=== PATIENT | female | born 1985 | race Caucasian/White ===

== ENCOUNTER → 2018-03-09 | Outpatient (CLI) | payer MEDICAID ==
--- NOTE | 2018-03-09 14:15 | RADIOLOGY REPORT (SQ) ---
EXAM DESCRIPTION: U/S NON-OB PELVIS LTD W/O DOP COMPLETED DATE/TIME: 03/09/2018 2:05 pm REASON FOR STUDY: ABD WALL BULGE (R19.00) R19.00 INTRA-ABD AND PELVIC SWELLING, MASS AND LUMP, UNSP SI COMPARISON: None. TECHNIQUE: Dynamic and static grayscale images acquired of the pelvis via transabdominal approach an d recorded on PACS. Additional selected color Doppler and spectral images recorded. LIMITATIONS: None. FINDINGS: Imaging in the area of the scar demonstrates a 2.4 x 1.9 x 1.3 cm somewhat heter ogeneous isoechoic nodule. There is no fluid collection. IMPRESSION: Likely granuloma. There is no evidence of an abscess. TECHNICAL DOCUMENTATION: JOB ID: [id number] [employer]- All Rights Reserved Rev-07/09 Reading location - IP/workstation name: [email or web address]
== END ==
LOC: RAD 12:39
PROVIDERS: ATTEND Family Medicine
DX: R19.00 Intra-abdominal and pelvic swelling, mass and lump, unspecified site (principal)
CPT/HCPCS: 76857

== ENCOUNTER → 2018-03-10 | Outpatient (CLI) | payer MEDICAID ==
--- NOTE | 2018-03-10 15:42 | WOMENS IMAGING REPORT ---
EXAM DESCRIPTION: U/S BREAST UNILATERAL, COMPL COMPLETED DATE/TIME: 03/10/2018 2:35 pm REASON FOR STUDY: N60.09 RIGHT N60.09 SOLITARY CYST OF UNSPECIFIED BREAST COMPARISON: None TECHNIQUE: Static and Realtime grayscale interrogation of the entire right breast(s) acquired. Selec darnell color doppler/spectral images saved to PACS. LIMITATIONS: None. FINDINGS: Masses:5 mm oval circumscribed cyst in the 9 o'clock location. Also in the 9 o'clock loca tion a 5 x 7 mm circumscribed septated cyst. No distal shadowing. No solid masses. Architecture:No alteration of normal morphology. No skin thickening. No edema. Other: None. IMPRESSION: Small cysts in the lateral right breast. No solid masses or worrisome findings. BIRAD: 2 Benign findings. RECOMMENDATION: RECOMMENDED FOLLOW-UP: Follow-up as clinically indicated. COMMENT: The [employer] (ACR) has developed recommendations for screening MRI of the breasts in certain patient populations, to be used in conjunction with mammography. Breast MRI s urveillance may be appropriate for women with more than 20% lifetime risk of developing breast cancer as determined by genetic testing, significant family history of the disease, or history of mantle r adiation for Hodgkins Disease. ACR Practice Guidelines 2008. TECHNICAL DOCUMENTATION: FINDING NUMBER: (1) ASSESSMENT: (1) JOB ID: [id number] [employer]- All Rights Reserved Reading location - IP/workstation name: [email or web address]
--- NOTE | 2018-03-10 15:44 | WOMENS IMAGING REPORT ---
EXAM DESCRIPTION: U/S BREAST UNILATERAL, COMPL COMPLETED DATE/TIME: 03/10/2018 2:35 pm REASON FOR STUDY: N60.09 LEFT N60.09 SOLITARY CYST OF UNSPECIFIED BREAST COMPARISON: None. TECHNIQUE: Real-time and static grayscale imaging performed of the left breast targeted to the area of clinical/mammographic concern. Selected color Doppler images recorded. LIMITATIONS: None. FINDINGS: MASS: Circumscribed hypoechoic masses, in 3 o'clock location measuring 5 x 7 mm and in the 9 o'clock location measuring 5 x 9 mm. Well-circumscribed with homogeneous echogenicity. No distal shadowing. Oriented relatively parallel to the skin. OTHER: No other significant finding. IMPRESSION: Small subcentimeter circumscribed solid masses as described. The patient reports a know n history of fibroadenoma. 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 If prior studies are available, comparison with prior studies would be helpful to determine if there is any change. If n o prior studies are available, then would recommend short-term interval followup with repeat ultrasou nd in 6 months. BIRAD: 3 Probably benign finding. Initial short-interval follow-up suggested. RECOMMENDATION: RECOMMENDED FOLLOW-UP: Short-term interval followup with repeat ultrasound of the le ft breast in 6 months. COMMENT: The [employer] (ACR) has developed recommendations for screening MRI of the breasts in certain patient populations, to be used in conjunction with mammography. Breast MRI s urveillance may be appropriate for women with more than 20% lifetime risk of developing breast cancer as determined by genetic testing, significant family history of the disease, or history of mantle r adiation for Hodgkins Disease. ACR Practice Guidelines 2008. TECHNICAL DOCUMENTATION: JOB ID: [id number] [employer]- All Rights Reserved Reading location - IP/workstation name: [email or web address]
== END ==
LOC: WI 12:45
PROVIDERS: ATTEND Family Medicine
DX: N60.09 Solitary cyst of unspecified breast (principal)
CPT/HCPCS: 76641

== ENCOUNTER 2018-06-06 05:34 | Inpatient (IN) | payer MEDICAID ==
[2018-05-30 11:33] LABS: APPEARANCE,URINE SLIGHTLY-CLOUDY; BILIRUBIN,URINE NEGATIVE (NEGATIVE); GLUCOSE, URINE NEGATIVE (NEGATIVE); KETONES,URINE TRACE mg/dL (NEGATIVE); LEUKOCYTE ESTERASE,URINE NEGATIVE (NEGATIVE); NITRITE,URINE NEGATIVE (NEGATIVE); PROTEIN,URINE NEGATIVE (NEGATIVE); URINE SPECIFIC GRAVITY 1.024
[2018-05-30 11:34] LABS: COLOR,URINE YELLOW
[2018-05-30 11:53] LABS: HEMOGLOBIN 9.8 g/dL (12.0-15.5); MEAN CORPUSCULAR HGB CONC 32.6 g/dL (32.0-36.0); MEAN CORPUSCULAR VOLUME 74 fl (80-97); PLATELET COUNT 215 10^3/uL (150-450); RED BLOOD COUNT 4.07 10^6/uL (3.72-5.28); RED CELL DISTRIBUTION WIDTH 18.3 % (11.5-14.0); WHITE BLOOD COUNT 5.8 10^3/uL (4.0-10.5)
[2018-05-30 12:11] LABS: ALANINE AMINOTRANSFERASE 17 U/L (9-52); ALBUMIN 4.1 g/dL (3.5-5.0); ALKALINE PHOSPHATASE 39 U/L (38-126); ANION GAP 6 (5-19); ASPARTATE AMINO TRANSFERASE 22 U/L (14-36); BILIRUBIN,DIRECT 0.2 mg/dL (0.0-0.4); BILIRUBIN,TOTAL 0.4 mg/dL (0.2-1.3); BLOOD UREA NITROGEN 11 mg/dL (7-20); CALCIUM 9.8 mg/dL (8.4-10.2); CARBON DIOXIDE 29 mmol/L (22-30); CHLORIDE 106 mmol/L (98-107); GLUCOSE 91 mg/dL (75-110); POTASSIUM 4.2 mmol/L (3.6-5.0); SODIUM 141.2 mmol/L (137-145); TOTAL PROTEIN 7.1 g/dL (6.3-8.2)
[~2018-06-06 05:34] MED LIST: CEFAZOLIN 2 GM/D5W RTU 2 GM/50 ML RTUPB IV ONE; CEFAZOLIN 2 GM/D5W RTU 2 GM/50 ML RTUPB IV PRN; LACTATED RINGERS 1000 ML IV PRN; LIDOCAINE 0.5% INJ-PF (5 MG/ML) 50 ML SDV SUBCUT PRN
[2018-06-06] MEDS ORDERED: MIDAZOLAM 2 MG/2 ML INJ ONE (06:37)
[2018-06-06] MEDS ORDERED: HYDROMORPHONE HCL INJ/PF 2 MG/ML AMPULE ONE (06:37)
[2018-06-06] MEDS ORDERED: FENTANYL CITRATE INJ/PF 100 MCG/2 ML AMPUL ONE (06:37)
[2018-06-06] MEDS ORDERED: PROPOFOL INJ 200 MG/20 ML VIAL IV ONE (06:38)
[2018-06-06] MEDS ORDERED: EPHEDRINE SULFATE INJ 50 MG/1 ML AMPULE ONE (06:38)
[2018-06-06] MEDS ORDERED: ACETAMINOPHEN 1,000 MG/100 ML RTUPB IV ONE (06:38)
[2018-06-06] MEDS ORDERED: SUGAMMADEX SODIUM 200 MG/2 ML SDV IV ONE (07:02)
[2018-06-06] MEDS ORDERED: SIMETHICONE 80 MG TAB.CHEW PO PRN (07:32)
[2018-06-06] MEDS ORDERED: OXYCODONE-ACETAMINOPHEN 5-325 MG TABLET PO PRN (07:32)
[2018-06-06] MEDS ORDERED: ACETAMINOPHEN 325 MG TABLET PO PRN (07:32)
[2018-06-06] MEDS ORDERED: ACETAMINOPHEN 1,000 MG/100 ML RTUPB IV PRN (07:32)
[2018-06-06] MEDS ORDERED: PROMETHAZINE HCL INJ 25 MG/1 ML VIAL IV PRN ×2 (07:32→08:23)
[2018-06-06] MEDS ORDERED: RINGERS SOLUTION,LACTATED 1,000 ML IV PRN (07:32)
[2018-06-06] MEDS ORDERED: MEPERIDINE HCL/PF INJ 25 MG/1 ML DISP.SYRIN IV PRN (08:23)
[2018-06-06] MEDS ORDERED: DIPHENHYDRAMINE HCL 50 MG/ML VIAL IV PRN (08:23)
[2018-06-06] MEDS ORDERED: MORPHINE SULFATE 10 MG/ML INJ IV PRN (08:23)
[2018-06-06] MEDS ORDERED: FENTANYL CITRATE INJ/PF 100 MCG/2 ML AMPUL IV PRN ×3 (08:23)
[2018-06-06] MEDS: FENTANYL CITRATE INJ/PF 100 MCG/2 ML AMPUL ONE ×2 (09:25→09:30)
[2018-06-06] MEDS ORDERED: ONDANSETRON HCL INJ/PF 4 MG/2 ML SDV ONE (09:26)
[2018-06-06] MEDS ORDERED: PROMETHAZINE HCL INJ 25 MG/1 ML VIAL ONE (09:26)
--- NOTE | 2018-06-06 09:26 | Operative Report ---
Operative Report DATE OF SURGERY: 06/06/18 PREOPERATIVE DIAGNOSIS: Patient has large fibroid uterus menorrhagia and anemia POSTOPERATIVE DIAGNOSIS: Same OPERATION: Total abdominal hysterectomy bilateral salpingectomy SURGEON: FLACO PINTO PRIMER CHARGER: KADEN ELLINGTON ANESTHESIA: GA TISSUE REMOVED OR ALTERED: Uterus and fallopian tubes COMPLICATIONS: None ESTIMATED BLOOD LOSS: 150 cc INTRAOPERATIVE FINDINGS: Large fibroid uterus normal ovaries, adhesions surrounding the left fallopian tube PROCEDURE: Patient was taken the OR and placed in supine position. General anesthesia was induced. Her abdomen perineum and vagina were prepared and draped in sterile fashion. A Pope catheter was placed. A low transverse incision was made excising her old scar. This was carried down to the level of the fascia which was nicked in the midline. The fascial incision was extended bilaterally using curved Duenas scissors. The fascia was off the rectus muscles using sharp and blunt dissection. The midline peritoneum was elevated and incised with Metzenbaum scissors safely entering the abdominal cavity. This incision was extended superiorly and inferiorly taking care not to injure bladder. A Mobius retractor was placed. 3 moist lap sponges were used to pack off bowel contents. The uterus was grasped with Tania thyroid clamp and elevated out of the pelvis. First the fallopian tubes were excised using the LigaSure device. There were adhesions at the left fallopian tube which had to be taken down. The round ligament was divided bilaterally. The anterior leaf of the broad ligament was incised creating a bladder flap and the posterior leaf the broad ligament was incised isolating the uterine arteries. The utero-ovarian pedicles were divided bilaterally using LigaSure device to clamp ligate and cut the pedicles. Next the and he adhesions overlying the bladder were taken down sharply without evidence of injury to the bladder. This was somewhat scarred up from her previous C-sections. Next the uterine arteries were clamped cauterized and divided using LigaSure device. The cardinal ligaments were then clamped cut and ligated using a straight Loly clamp and transfixation suture of 0 Vicryl. The cardinal ligaments were quite long as the cervix was long. Upon reaching the vaginal angle curved Loly clamps were used to come across the vaginal angles. The cervix was excised free from the vaginal cuff. Angle sutures were placed bilaterally incorporating anterior vaginal mucosa lateral vaginal sidewall and posterior vaginal mucosa. The vaginal cuff was closed with a running locking suture of 0 Vicryl. The pelvis was irrigated and suctioned free of fluid. The ureters were identified peristalsing and not dilated bilaterally. The uterine pedicles and the ovarian pedicles were inspected and there was no bleeding. The 3 lap sponges were removed as well as the Mobius retractor. The bowel was allowed to settle in its natural configuration. The anterior abdominal wall peritoneum was closed with a running 2-0 chromic stitch. The subfascial tissues were inspected for bleeding and the fascia was closed with a running 0 Vicryl in 2 segments. The wound was irrigated and suctioned free of fluid the subcu layer was closed with a 2 oh plain gut stitch and skin closed with a 4-0 undyed Vicryl stitch. The wound was dressed. Patient was brought out of anesthesia and taken recovery room in stable condition.
[2018-06-06] MEDS: MORPHINE SULFATE 10 MG/ML INJ ONE ×2 (09:40→09:45)
[2018-06-06] MEDS ORDERED: KETOROLAC TROMETHAMINE 60 MG/2 ML SDV ONE (10:25)
[2018-06-06] MEDS ORDERED: DEXAMETHASONE SOD PHOSPHATE INJ 4 MG/1 ML VIAL ONE (10:25)
[2018-06-06] MEDS ORDERED: ROCURONIUM BROMIDE INJ 50 MG/5 ML VIAL IV ONE (10:25)
[2018-06-06] MEDS ORDERED: LIDOCAINE 2% INJ-PF (20 MG/ML) 2 ML AMPUL ONE (10:25)
[2018-06-06] MEDS ORDERED: SUCCINYLCHOLINE CHLORIDE INJ 200 MG/10 ML VIAL ONE (10:25)
[2018-06-06] MEDS: HYDROMORPHONE HCL INJ/PF 2 MG/ML AMPULE IV PRN ×2 (11:23→14:24)
[2018-06-06] MEDS: PRENATAL VITAMIN W DHA CAPSULE PO SCH (11:36)
[2018-06-06] MEDS: OXYCODONE-ACETAMINOPHEN 5-325 MG TABLET PO PRN ×2 (12:28→19:01)
[2018-06-06] MEDS: KETOROLAC TROMETHAMINE INJ/PF 30 MG/1 ML SDV IV SCH ×2 (13:10→21:00)
[2018-06-06 15:09] LABS: ABSOLUTE LYMPHOCYTES (AUTO) 0.6 10^3/uL (0.5-4.7); ABSOLUTE MONOCYTES (AUTO) 0.4 10^3/uL (0.1-1.4); BASOPHILS % (AUTO) 0.1 % (0-2); HEMATOCRIT 25.1 % (36.0-47.0); LYMPHOCYTES % (AUTO) 5.5 % (13-45); MEAN CORPUSCULAR HEMOGLOBIN 23.3 pg (27.0-33.4); MEAN CORPUSCULAR HGB CONC 31.9 g/dL (32.0-36.0); MEAN CORPUSCULAR VOLUME 73 fl (80-97); MONOCYTES % (AUTO) 3.5 % (3-13); PLATELET COUNT 197 10^3/uL (150-450); RED BLOOD COUNT 3.43 10^6/uL (3.72-5.28); RED CELL DISTRIBUTION WIDTH 17.7 % (11.5-14.0); SEGMENTED NEUTROPHILS % (AUTO) 90.9 % (42-78); TOTAL CELLS COUNTED % (AUTO) 100 %
[2018-06-06 15:26] LABS: ANION GAP 7 (5-19); BLOOD UREA NITROGEN 9 mg/dL (7-20); CALCIUM 8.7 mg/dL (8.4-10.2); CARBON DIOXIDE 25 mmol/L (22-30); CHLORIDE 107 mmol/L (98-107); GLUCOSE 113 mg/dL (75-110); SODIUM 139.1 mmol/L (137-145)
[2018-06-06] MEDS: DOCUSATE SODIUM 100 MG CAPSULE PO SCH (19:51)
[2018-06-07] MEDS: OXYCODONE-ACETAMINOPHEN 5-325 MG TABLET PO PRN ×4 (00:11→13:15)
[2018-06-07] MEDS ORDERED: RINGERS SOLUTION,LACTATED 1,000 ML IV ONE (01:00)
[2018-06-07] MEDS: KETOROLAC TROMETHAMINE INJ/PF 30 MG/1 ML SDV IV SCH (05:30)
[2018-06-07 06:17] LABS: MEAN CORPUSCULAR HEMOGLOBIN 23.7 pg (27.0-33.4); MEAN CORPUSCULAR HGB CONC 32.4 g/dL (32.0-36.0); MEAN CORPUSCULAR VOLUME 73 fl (80-97); PLATELET COUNT 148 10^3/uL (150-450); RED CELL DISTRIBUTION WIDTH 17.6 % (11.5-14.0); WHITE BLOOD COUNT 6.8 10^3/uL (4.0-10.5)
[2018-06-07 06:20] LABS: HEMOGLOBIN 7.1 g/dL (12.0-15.5)
--- NOTE | 2018-06-07 08:02 | PDOC PROGRESS REPORT ---
Subjective Progress Note for:: 06/07/18 Subjective:: She is up and doing well. Reason For Visit: N92.0 EXCESSIVE AND FREQUENT MENSTRUATION WITH REG Physical Exam - Physical Exam Vital Signs: Temp Pulse Resp BP Pulse Ox 98.2 F 55 L 16 93/52 L 100 06/07/18 05:06 06/07/18 05:06 06/07/18 05:06 06/07/18 05:06 06/07/18 05:06 Intake & Output 06/06/18 06/07/18 06/08/18 06:59 06:59 06:59 Intake Total 0 3150 Output Total 1850 Balance 0 1300 Weight 62.14 kg 62.8 kg General appearance: PRESENT: no acute distress - dressing is dry, well- developed, well-nourished Result Laboratory Results: 06/07/18 06:00 06/06/18 14:45 06/06/18 06/06/18 06/07/18 14:45 14:45 06:00 WBC 11.0 H 6.8 RBC 3.43 L 3.00 L Hgb 8.0 L 7.1 L Hct 25.1 L 22.0 L MCV 73 L 73 L MCH 23.3 L 23.7 L MCHC 31.9 L 32.4 RDW 17.7 H 17.6 H Plt Count 197 148 L Seg Neutrophils % 90.9 H Lymphocytes % 5.5 L Monocytes % 3.5 Eosinophils % 0.0 Basophils % 0.1 Absolute Neutrophils 10.0 H Absolute Lymphocytes 0.6 Absolute Monocytes 0.4 Absolute Eosinophils 0.0 Absolute Basophils 0.0 Sodium 139.1 Potassium 4.0 Chloride 107 Carbon Dioxide 25 Anion Gap 7 BUN 9 Creatinine 0.62 Est GFR ( Amer) > 60 Est GFR (Non-Af Amer) > 60 Glucose 113 H Calcium 8.7 Impressions: Post op day one. She is anemic but doing well. Assessment & Plan - Diagnosis (1) Uterine fibroid Is this a current diagnosis for this admission?: Yes (2) Anemia due to blood loss, acute Is this a current diagnosis for this admission?: Yes (3) Anemia due to blood loss, chronic Is this a current diagnosis for this admission?: Yes - Plan Summary Plan Summary: remove youssef and saline lock iv
[2018-06-07] MEDS: DOCUSATE SODIUM 100 MG CAPSULE PO SCH (10:13)
[2018-06-07] MEDS: PRENATAL VITAMIN W DHA CAPSULE PO SCH (10:13)
[2018-06-07 11:44] VITALS: BP 105/67
[2018-06-07] MEDS ORDERED: IBUPROFEN 800 MG TABLET PO SCH (12:00)
--- NOTE | 2018-06-07 12:21 | PDOC DISCHARGE SUMMARY ---
General - Admit/Disc Date/PCP Admission Date/Primary Care Provider: 06/06/18 05:34 Discharge Date: 06/07/18 - Discharge Diagnosis (1) Uterine fibroid Is this a current diagnosis for this admission?: Yes (2) Anemia due to blood loss, acute Is this a current diagnosis for this admission?: Yes (3) Anemia due to blood loss, chronic Is this a current diagnosis for this admission?: Yes - Additional Information Home Medications: Clonazepam [Klonopin 1 mg Tablet] 1 mg PO Q12HP PRN 05/30/18 History of Present Illness History of Present Illness: BELIA CRANE is a 33 year old female with a large fibroid with heavy menses and anemia. Hospital Course Hospital Course: She underwent a hysterectomy and is doing well post op. She has anemia of both chronic and acute blood loss but is tolerating well. Physical Exam - Physical Exam Vital Signs: Temp Pulse Resp BP Pulse Ox 98.6 F 70 16 105/67 93 06/07/18 11:36 06/07/18 11:36 06/07/18 11:36 06/07/18 11:36 06/07/18 11:36 Intake & Output 06/06/18 06/07/18 06/08/18 06:59 06:59 06:59 Intake Total 0 3150 Output Total 1850 725 Balance 0 1300 -725 Weight 62.14 kg 62.8 kg General appearance: PRESENT: no acute distress - incision clean dry intact., well-developed, well-nourished Result Laboratory Results: 06/07/18 06:00 06/06/18 14:45 06/06/18 06/06/18 06/07/18 14:45 14:45 06:00 WBC 11.0 H 6.8 RBC 3.43 L 3.00 L Hgb 8.0 L 7.1 L Hct 25.1 L 22.0 L MCV 73 L 73 L MCH 23.3 L 23.7 L MCHC 31.9 L 32.4 RDW 17.7 H 17.6 H Plt Count 197 148 L Seg Neutrophils % 90.9 H Lymphocytes % 5.5 L Monocytes % 3.5 Eosinophils % 0.0 Basophils % 0.1 Absolute Neutrophils 10.0 H Absolute Lymphocytes 0.6 Absolute Monocytes 0.4 Absolute Eosinophils 0.0 Absolute Basophils 0.0 Sodium 139.1 Potassium 4.0 Chloride 107 Carbon Dioxide 25 Anion Gap 7 BUN 9 Creatinine 0.62 Est GFR ( Amer) > 60 Est GFR (Non-Af Amer) > 60 Glucose 113 H Calcium 8.7 Impressions: Doing well post day one. Plan Discharge Plan: Home to rest with followup in a week. Time Spent: Less than 30 Minutes
== END 2018-06-07 13:23 | disposition home or self-care (01) | DRG 742 ==
LOC: INOR 05:34 → 2S 10:24
PROVIDERS: ADMIT Obstetrics & Gynecology; ATTEND Obstetrics & Gynecology
PROC: 0UT70ZZ Resection of Bilateral Fallopian Tubes, Open Approach (ICD-10-PCS; 2018-06-06)
PROC: 0UT90ZZ Resection of Uterus, Open Approach (ICD-10-PCS; principal; 2018-06-06 07:30)
DX: D25.1 Intramural leiomyoma of uterus (principal); D62 Acute posthemorrhagic anemia; N92.0 Excessive and frequent menstruation with regular cycle; D50.0 Iron deficiency anemia secondary to blood loss (chronic); G25.81 Restless legs syndrome; F32.9 Major depressive disorder, single episode, unspecified
CPT/HCPCS: 36415; 80048; 80053; 81001; 81025; 840; 85025; 85027; 86850; 86900; 86901; 88307; 94799; J0131; J0330; J0690; J1100; J1170; J1885; J2250; J2270; J2405; J2550; J2704; J3010; J3490; J7120

== ENCOUNTER 2018-06-10 08:21 | Emergency (ER) | payer MEDICAID ==
[2018-06-10 09:03] LABS: APPEARANCE,URINE CLEAR; BILIRUBIN,URINE NEGATIVE (NEGATIVE); COLOR,URINE STRAW; GLUCOSE, URINE NEGATIVE (NEGATIVE); KETONES,URINE NEGATIVE (NEGATIVE); LEUKOCYTE ESTERASE,URINE NEGATIVE (NEGATIVE); NITRITE,URINE NEGATIVE (NEGATIVE); PROTEIN,URINE NEGATIVE (NEGATIVE); URINE SPECIFIC GRAVITY 1.004; UROBILINOGEN,URINE NEGATIVE mg/dL (<2.0)
[2018-06-10 09:24] LABS: ABSOLUTE EOSINOPHILS # (AUTO) 0.3 10^3/uL (0.0-0.6); ABSOLUTE LYMPHOCYTES (AUTO) 1.2 10^3/uL (0.5-4.7); ABSOLUTE MONOCYTES (AUTO) 0.7 10^3/uL (0.1-1.4); ABSOLUTE NEUT (AUTO) 6.2 10^3/uL (1.7-8.2); BASOPHILS % (AUTO) 0.3 % (0-2); EOSINOPHILS % (AUTO) 3.7 % (0-6); HEMATOCRIT 23.4 % (36.0-47.0); LYMPHOCYTES % (AUTO) 14.3 % (13-45); MEAN CORPUSCULAR HEMOGLOBIN 23.6 pg (27.0-33.4); MEAN CORPUSCULAR HGB CONC 32.4 g/dL (32.0-36.0); MEAN CORPUSCULAR VOLUME 73 fl (80-97); MONOCYTES % (AUTO) 7.7 % (3-13); PLATELET COUNT 243 10^3/uL (150-450); RED BLOOD COUNT 3.22 10^6/uL (3.72-5.28); RED CELL DISTRIBUTION WIDTH 18.1 % (11.5-14.0); TOTAL CELLS COUNTED % (AUTO) 100 %; WHITE BLOOD COUNT 8.4 10^3/uL (4.0-10.5)
[2018-06-10 09:29] LABS: HEMOGLOBIN 7.6 g/dL (12.0-15.5)
[2018-06-10 09:35] LABS: INTERNATIONAL RATION (INR) 0.96; PROTHROMBIN TIME 13.3 SEC (11.4-15.4)
[2018-06-10 09:36] LABS: PARTIAL THROMBOPLASTIN TIME 45.3 SEC (23.5-35.8)
[2018-06-10 09:39] LABS: ALANINE AMINOTRANSFERASE 24 U/L (9-52); ALBUMIN 3.2 g/dL (3.5-5.0); ALKALINE PHOSPHATASE 40 U/L (38-126); ANION GAP 7 (5-19); ASPARTATE AMINO TRANSFERASE 19 U/L (14-36); BILIRUBIN,DIRECT 0.2 mg/dL (0.0-0.4); BILIRUBIN,TOTAL 0.3 mg/dL (0.2-1.3); BLOOD UREA NITROGEN 9 mg/dL (7-20); CALCIUM 8.8 mg/dL (8.4-10.2); CARBON DIOXIDE 25 mmol/L (22-30); CHLORIDE 108 mmol/L (98-107); CREATINE KINASE 98 U/L (30-135); GLUCOSE 87 mg/dL (75-110); POTASSIUM 3.9 mmol/L (3.6-5.0); SODIUM 140.3 mmol/L (137-145)
[2018-06-10] MEDS ORDERED: OXYCODONE-ACETAMINOPHEN 5-325 MG TABLET PO ONE (09:44)
[2018-06-10 10:03] LABS: NT PRO BNP 291 pg/mL (<125)
[2018-06-10 10:05] LABS: TROPONIN I < 0.012 ng/mL
--- NOTE | 2018-06-10 10:42 | ER Document Report ---
ED General - General Chief Complaint: Post Surgical Pain Stated Complaint: POST SURGICAL PAIN Time Seen by Provider: 06/10/18 08:47 Primary Care Provider: FLACO GARCIA MD [Primary Care Provider] - Follow up as needed TRAVEL OUTSIDE OF THE [place] IN LAST 30 DAYS: No - HPI Notes: Patient is a 33-year-old female presents to the emergency department for evaluation. She had hysterectomy performed on Wednesday. She was discharged on Wednesday. This is performed by Dr. Garcia. She states the procedure went without difficulty, she was sent home mildly anemic but no other acute complaints. She states she been taking the Percocet sparingly, it has been helping her with her pain. Yesterday she started having significant low back pain. She states she feels a pressure throughout her entire lower abdomen as well. This morning she noted that her legs were swollen. She denies any chest pain or difficulty breathing. She states her urine stream is also been intermittently hesitant. She denies any dysuria, urinary frequency, gross hematuria. She states that she has not had a bowel movement since before the surgery, but that is not highly abnormal for her. - Related Data Allergies/Adverse Reactions: No Known Allergies Allergy (Verified 06/10/18 08:22) Past Medical History - General Information source: Patient - Social History Smoking Status: Current Every Day Smoker Family History: Reviewed & Not Pertinent Patient has suicidal ideation: No Patient has homicidal ideation: No Pulmonary Medical History: Denies: Hx Asthma, Hx Bronchitis Endocrine Medical History: Denies: Hx Diabetes Mellitus Type 2 Renal/ Medical History: Reports: Hx Ovarian Cysts. Denies: Hx Ectopic , Hx Kidney Stones, Hx Peritoneal Dialysis, Hx Pelvic Inflammatory Disease Malignancy Medical History: Denies: Hx Breast Cancer, Hx Cervical Cancer, Hx Leukemia, Hx Ovarian Cancer GI Medical History: Reports: Hx Gastroesophageal Reflux Disease - HX OF GERD. Denies: Hx Crohn's Disease, Hx Hiatal Hernia, Hx Irritable Bowel, Hx Liver Fa ilure, Hx Pancreatitis, Hx Ulcer Skin Medical History: Denies Hx MRSA Psychiatric Medical History: Reports: Hx Depression - MILD Denies: Hx Bipolar Disorder, Hx Post Traumatic Stress Disorder, Hx Schizophrenia Infectious Medical History: Denies: Hx HIV Past Surgical History: Reports: Hx Section - X 2, Hx Tubal Ligation. Denies: Hx Appendectomy, Hx Bowel Surgery, Hx Cholecystectomy, Hx Colostomy, Hx Coronary Artery Bypass Graft, Hx Gastric Bypass Surgery, Hx Herniorrhaphy, Hx Hysterectomy, Hx Mastectomy, Hx Pacemaker, Hx Tonsillectomy - Immunizations Hx Diphtheria, Pertussis, Tetanus Vaccination: Yes Review of Systems - Review of Systems Constitutional: No symptoms reported EENT: No symptoms reported Cardiovascular: No symptoms reported Respiratory: No symptoms reported Gastrointestinal: No symptoms reported Genitourinary: No symptoms reported Musculoskeletal: See HPI Skin: No symptoms reported Neurological/Psychological: No symptoms reported Physical Exam - Vital signs Vitals: Temp Pulse Resp BP Pulse Ox 98.4 F 100 20 119/44 L 99 06/10/18 08:25 06/10/18 08:25 06/10/18 08:25 06/10/18 08:25 06/10/18 08:25 - Notes Notes: Vital signs reviewed, please refer to chart. Patient is normocephalic, atraumatic. Pupils equal round, reactive to light. Neck is supple without meningismus. Heart is regular rate and rhythm. Lungs are clear to auscultation bilaterally. Abdomen is soft, mild tenderness, normoactive bowel sounds throughout. She has bandages in place is normal lower abdomen. She does have a small, tender, palpable hematoma over the left side of the mons. Extremities without cyanosis, clubbing. 1+ pitting edema to bilateral ankles. No posterior calf tenderness. Peripheral pulses are equal. Skin is warm and dry. Patient is awake, alert, neurological exam is nonfocal. Examination of the spine yields no midline tenderness or step-off. There is paraspinal musculature tenderness noted at L3 bilaterally with mild associated spasm. Course - Re-evaluation Re-evalutation: 06/10/18 10:39 Patient presents to the emergency department for evaluation. She has multiple complaints, but is primarily concerned about her back pain, leg swelling, and an extra bruise that she noted on abdominal inspection today. Workup was ordered. Laboratory investigations revealed an anemia, but this is actually improved since her discharge from the hospital. Urinalysis was unremarkable. I suspect part of this may be secondary to constipation, and will encourage the patient to continue stool softeners and a good bowel regimen. Given the mild edema in her legs, to be thorough I did order Doppler of bilateral legs. Unfortunately, ultrasound was extremely busy, and the patient declined waiting any longer for her Dopplers. I explained to her that I was concerned about the possibility of DVT, especially since she is postop. We did discuss the possibility of this developing into a pulmonary embolus, and that this could be significantly damaging or fatal. She voiced understanding. I explained her that she should come in at any time if she changes her mind. Certainly if she develops chest pain or difficulty breathing, she needs to come in more urgently for evaluation. She voiced understanding to this. She states she has a special needs son which requires her presents. The importance of keeping her appointment with Dr. Garcia next week was stressed. She voiced understanding to this and was discharged. 06/10/18 11:40 - Vital Signs Vital signs: Temp Pulse Resp BP Pulse Ox 98.4 F 100 20 119/44 L 99 06/10/18 08:25 06/10/18 08:25 06/10/18 08:25 06/10/18 08:25 06/10/18 08:25 - Laboratory Result Diagrams: 06/10/18 08:55 06/10/18 08:55 Laboratory results interpreted by me: 06/10/18 06/10/18 06/10/18 08:55 08:55 08:55 RBC 3.22 L Hgb 7.6 L Hct 23.4 L MCV 73 L MCH 23.6 L RDW 18.1 H APTT 45.3 H Chloride 108 H NT-Pro-B Natriuret Pep Total Protein 6.0 L Albumin 3.2 L 06/10/18 08:55 RBC Hgb Hct MCV MCH RDW APTT Chloride NT-Pro-B Natriuret Pep 291 H Total Protein Albumin Discharge - Discharge Clinical Impression: Low back pain, Lower extremity edema Abdominal pain Qualifiers: Abdominal location: lower abdomen, unspecified Qualified Code(s): R10.30 - Lower abdominal pain, unspecified Condition: Stable Disposition: HOME, SELF-CARE Instructions: Abdominal Pain ([facility]), Dependent Edema ([facility]) Additional Instructions: You have elected not to stay for Dopplers of your legs to rule out clots. You can return to the ED at any point if you change your mind in regards to this. Certainly if you develop chest pain or difficulty breathing, return immediately for reevaluation. Otherwise, no clear reason was found for your abdominal pain and low back pain. It is likely secondary to constipation. Continue bowel regimen, stool softeners. You can add MiraLAX twice daily. Stay well-hydrated. Follow-up with Dr. Garcia next week as scheduled. Return to the emergency department with worsening or new concerning terms, or certainly if you change yo ur mind regarding Doppler studies. Referrals: FLACO GARCIA MD [Primary Care Provider] - Follow up as needed
[2018-06-10 11:50] VITALS: BP 107/59
== END 2018-06-10 11:48 | disposition home or self-care (01) ==
LOC: ER 08:21
DX: M54.5 Low back pain (principal); R10.30 Lower abdominal pain, unspecified; R60.0 Localized edema; R39.198 Other difficulties with micturition; Z90.710 Acquired absence of both cervix and uterus; F17.200 Nicotine dependence, unspecified, uncomplicated
CPT/HCPCS: 36415; 80053; 81001; 82550; 82553; 83880; 84484; 85025; 85610; 85730; 99283

== ENCOUNTER 2018-09-27 07:01 | Day surgery (SDC) | payer MEDICAID ==
[2018-09-16 11:09] LABS: ABSOLUTE EOSINOPHILS # (AUTO) 0.1 10^3/uL (0.0-0.6); ABSOLUTE LYMPHOCYTES (AUTO) 1.7 10^3/uL (0.5-4.7); ABSOLUTE MONOCYTES (AUTO) 0.6 10^3/uL (0.1-1.4); ABSOLUTE NEUT (AUTO) 3.5 10^3/uL (1.7-8.2); BASOPHILS % (AUTO) 0.6 % (0-2); EOSINOPHILS % (AUTO) 1.8 % (0-6); HEMATOCRIT 31.9 % (36.0-47.0); LYMPHOCYTES % (AUTO) 28.3 % (13-45); MEAN CORPUSCULAR HEMOGLOBIN 22.1 pg (27.0-33.4); MEAN CORPUSCULAR HGB CONC 31.3 g/dL (32.0-36.0); MEAN CORPUSCULAR VOLUME 71 fl (80-97); MONOCYTES % (AUTO) 10.2 % (3-13); PLATELET COUNT 203 10^3/uL (150-450); RED BLOOD COUNT 4.52 10^6/uL (3.72-5.28); RED CELL DISTRIBUTION WIDTH 20.5 % (11.5-14.0); SEGMENTED NEUTROPHILS % (AUTO) 59.1 % (42-78); TOTAL CELLS COUNTED % (AUTO) 100 %
[2018-09-16 11:29] LABS: ANION GAP 8 (5-19); BLOOD UREA NITROGEN 9 mg/dL (7-20); CALCIUM 9.3 mg/dL (8.4-10.2); CARBON DIOXIDE 25 mmol/L (22-30); CHLORIDE 107 mmol/L (98-107); GLUCOSE 85 mg/dL (75-110); POTASSIUM 4.2 mmol/L (3.6-5.0)
[~2018-09-27 07:01] MED LIST changes: -CEFAZOLIN 2 GM/D5W RTU 2 GM/50 ML RTUPB IV ONE; -CEFAZOLIN 2 GM/D5W RTU 2 GM/50 ML RTUPB IV PRN; +CEFAZOLIN SODIUM 2 GM in DEXTROSE 5%-WATER 100 ML IV PRN
[2018-09-27] MEDS ORDERED: LIDOCAINE 2% INJ-PF (20 MG/ML) 10 ML AMPUL ONE (07:10)
[2018-09-27] MEDS ORDERED: PROPOFOL INJ 200 MG/20 ML VIAL IV ONE (07:11)
[2018-09-27] MEDS ORDERED: MIDAZOLAM 2 MG/2 ML INJ ONE (07:11)
[2018-09-27] MEDS ORDERED: DEXAMETHASONE SOD PHOSPHATE INJ 4 MG/1 ML VIAL ONE (07:11)
[2018-09-27] MEDS ORDERED: ONDANSETRON HCL INJ/PF 4 MG/2 ML SDV ONE ×2 (07:11→09:37)
[2018-09-27] MEDS ORDERED: FENTANYL CITRATE INJ/PF 100 MCG/2 ML AMPUL ONE (07:11)
[2018-09-27] MEDS ORDERED: ALBUTEROL SULFATE 0.083% NEB 2.5 MG/3 ML AMPUL NEB ONE (07:13)
[2018-09-27] MEDS ORDERED: LIDOCAINE 1% INJ-PF (10 MG/ML) 30 ML SDV ONE (07:36)
[2018-09-27] MEDS ORDERED: BUPIVACAINE HCL 0.5 % INJ/PF 30 ML SDV ONE (07:36)
[2018-09-27] MEDS ORDERED: FENTANYL CITRATE INJ/PF 100 MCG/2 ML AMPUL IV PRN ×3 (08:36)
[2018-09-27] MEDS ORDERED: ONDANSETRON HCL INJ/PF 4 MG/2 ML SDV IV PRN (09:37)
[2018-09-27] MEDS ORDERED: OXYCODONE-ACETAMINOPHEN 5-325 MG TABLET PO PRN (09:37)
--- NOTE | 2018-09-27 09:38 | Discharge Summary ---
Discharge Summary (SDC) - Discharge Final Diagnosis: Left thumb radial collateral ligament tear Date of Surgery: 09/27/18 Discharge Date: 09/27/18 Condition: Good Treatment or Instructions: Schedule Follow Up w/ Dr. Crow Downs @ [facility] for Surgery to be seen in 10-14 days or as scheduled [place]: [place]: [place]: Ice and elevate Keep splint clean/dry/intact, do not remove. If your fingers become numb please unwrap the Jeferson wrap but leave the splint in place, if the sensation does not return within 30 minutes please return to the emergency department. May begin finger range of motion attempting to make full fist. Please use ibuprofen (Motrin or Advil) 600-800 mg every 8 hours as needed for pain or fever DO NOT TAKE w/ TORADOL may use once TORADOL complete. You may also use acetaminophen (Tylenol) 1000 mg every 4-6 hours as needed for pain or fever. Please be aware that many medications contain acetaminophen, do not exceed a total of 1000 mg of acetaminophen every 6 hours. If ibuprofen and acetaminophen are not sufficient for your pain you may take the Percocet/Kenneth. Please be aware that the Percocet/Kenneth does contain Tylenol. Stool softener of choice when on pain medication. USE OF [id number] IBUPROFEN: Ibuprofen (Advil, Nuprin, Medipren, Motrin IB) is a medication for fever and pain control. In addition, it has anti- inflammatory effects which may be beneficial, especially in the treatment of injuries. It's best to take ibuprofen with food. Persons with ulcer disease or allergy to aspirin should notify their physician of this before taking ibuprofen. Ibuprofen can be given every four to six hours, for a total of four doses daily. Age Pain or fever dose Antiinflammatory dose 6-8 yr 200 mg (1 tab) 200 mg (1 tab) 9-11 yr 200 mg (1 tab) 200-400 mg (1-2 tab) 11-14 yr 200-400 mg (1-2 tab) 400 mg (2 tab) 15-adult 400 mg (2 tab) 600 mg (3 tab) ORAL NARCOTIC MEDICATION: You have been given a prescription for pain control. This medication is a narcotic. It's best taken with food, as nausea can result if taken on an empty stomach. Don't operate machinery or drive within six hours of taking this medication. Do not combine this medicine with alcohol, or with any medication which can cause sedation (such as cold tablets or sleeping pills) unless you get permission from the physician. Narcotics tend to cause constipation. If possible, drink plenty of fluids and eat a diet high in fiber and fruits. Please be aware that prescription narcotics also have the potential for abuse. People become addicted to these medications because of the general sense of wellbeing that they induce. This feeling along with a significant reduction in tension, anxiety, and aggression provides a stimulating seductive quality to these drugs. Once your pain is under control, we encourage you to discard your unused narcotics. Prescriptions: Ketorolac Tromethamine [Toradol 10 mg Tablet] 10 mg PO Q8HP PRN #10 tablet PRN Reason: Oxycodone HCl/Acetaminophen [Percocet 5-325 mg Tablet] 1 tab PO Q6 PRN #25 tab PRN Reason: Referrals: HOLDEN CABRERA MD [Primary Care Provider] - Respiratory Treatments at Home: Deep Breathing/Coughing Discharge Activity: No Lifting Over 10 Pounds, No Lifting/Push/Pulling Report the Following to Your Physician Immediately: Fever over 101 Degrees, Unusual Bleeding, Redness, Swelling, Warmth, Increased Soreness
[2018-09-27] MEDS: HYDROMORPHONE HCL INJ/PF 2 MG/ML AMPULE ONE ×4 (09:49→10:19)
[2018-09-27] MEDS ORDERED: ACETAMINOPHEN 1,000 MG/100 ML RTUPB IV ONE (09:49)
[2018-09-27] MEDS ORDERED: KETOROLAC TROMETHAMINE INJ/PF 30 MG/1 ML SDV ONE (09:49)
--- NOTE | 2018-09-27 09:52 | Operative Report ---
Operative Report DATE OF SURGERY: 09/27/18 PREOPERATIVE DIAGNOSIS: Left thumb radial collateral ligament tear POSTOPERATIVE DIAGNOSIS: Same OPERATION: Left thumb radial collateral ligament reconstruction with palmaris longus autograft SURGEON: KJ VERDE ANESTHESIA: GA COMPLICATIONS: None ESTIMATED BLOOD LOSS: Minimal PROCEDURE: Indication for above procedure: 33-year-old female who sustained an injury back in March to her left thumb. We attempted to remeasure including casting, immobilization along with anti- inflammatories without resolution of patient's symptoms. Patient had MRI demonstrating full-thickness radial collateral ligament tear on examination patient had notable instability at that point decision was made to proceed with operative intervention. Risk and benefits were explained patient verbalized understanding consented for surgical procedure. Procedure In Detail: Patient was seen and evaluated in the preoperative holding area. The LEFT upper extremity was initialized and marked. Patient received 2g of Ancef IV for bacterial prophylaxis. Patient was taken back to the operative room where transferred to the operative table and placed under general anesthesia. Once they were adequately anesthetized a nonsterile tourniquet was placed on the upper extremity. A surgical team debriefing was performed ensuring all instrumentation was available, the surgical procedure was discussed with possible concerns reviewed. The upper extremity was prepped with chlorhexidine and alcohol and draped in a sterile fashion. A timeout was done identifying correct patient, procedure and extremity everyone in attendance agree with this and verbalized no concerns. The extremity was exsanguinated the tourniquet was inflated to 250 mmHg. Curvilinear skin incision was made along the radial border of the MCP joint. Blunt dissection was performed. Small branches of the superficial radial nerve were retracted. The adductor aponeurosis was then split longitudinally to expose the underlying radial collateral ligament. There was complete avulsion of the radial collateral ligament from its insertion point and a defect along the joint capsule. The remaining radial collateral ligament was then elevated from the proximal phalanx to expose the MCP joint. MCP joint was inspected which demonstrated chondral defect along its volar aspect this area was debrided and MCP joint irrigated. Given the limited soft tissue of the radial collateral ligament decision was made to proceed with reconstruction. Two longitudinal skin incisions were made over the palmaris longus. Blunt dissection was performed to identify the palmaris longus and harvest a 30 mm x 3 mm graft. 0 PDS suture was placed and shuttled distally to obtain the graft. On the back table a 2 oh fiber loop and a 4 oh fiber loop were placed proximally and distally within the graft respectively and it was then placed in a saline soaked sponge. The insertion of the proximal phalanx was identified and confirmed with C arm fluoroscopy and appropriate size K wire placed. A second K wire was then placed on the metacarpal at the origin of the radial collateral ligament and once again confirmed with C arm fluoroscopy and appropriate size K wire placed. Cannulated drill was then advanced to the stop proximally and distally. Graft was secured within the proximal phalanx along with labral tape utilizing a fork tip swivel lock. While maintaining radial deviated pressure with the MCP joint at 30 degrees of flexion the 2 limbs of labral tape and graft were inserted at the origin within the metacarpal prior to advancing the fourth tip swivel lock, to act as a internal brace. At completion there was optimal stability of the radial collateral ligament under C arm fluoroscopy and out stress. Concentric alignment of the MCP joint on fluoroscopy was confirmed. The remnant of the radial collateral ligament was then secured to the proximal phalanx with the remaining 4-0 FiberWire. Adductor aponeurosis was then reapproximated with 4-0 FiberWire and 3-0 Vicryl suture. Wound was then copiously irrigated with normal saline. Any peripheral veins were coagulated with bipolar cautery. Skin was closed with running subcuticular 4-0 Monocryl reinforced with Dermabond and Steri-Strips. 15 cc of 0.5% Marcaine without epinephrine was injected for postoperative pain control. Patient was placed in a thumb spica splint in neutral position. Tourniquet was deflated patient had good perfusion. Sponge counts, instrument counts, needle counts were correct. Patient was then awoken from anesthesia. Transferred from the operating room table to the operating room stretcher. There was no intraoperative complications patient tolerated procedure well stable to PACU. Postoperative plan: Patient will follow in the office in 2 weeks at which point we will obtain radiographs and transition to a thumb spica cast.
--- NOTE | 2018-09-27 10:29 | RADIOLOGY REPORT (SQ) ---
EXAM DESCRIPTION: FINGER LEFT; NO CHG FLUORO COMPLETED DATE/TIME: 09/27/2018 9:50 am; 09/27/2018 9:49 am REASON FOR STUDY: LEFT THUMB THUMB REPAIR S63.642A SPRAIN OF METACARPOPHALANGEAL JOINT OF LEFT THUM B, COMPARISON: None. FLUOROSCOPY TIME: 1 minutes 4 seconds 7 digital C-arm images saved to PACS. TECHNIQUE: Intra-operative images acquired during surgical procedure to evaluate progress. NUMBER OF IMAGES: 7 digital C-arm images LIMITATIONS: None. FINDINGS: 7 films are submitted during hardware removal at the level of the left 1st metacarpophalan geal joint. Please see the operative report for further details. Stress and nonstress images were o btained at the 1st metacarpophalangeal joint IMPRESSION: Intra procedural imaging and fluoro COMMENT: Quality ID [id number]: Final reports for procedures using fluoroscopy that document radiation exp osure indices, or exposure time and number of fluorographic images (if radiation exposure indices are not available) Please consult full operative report of the attending physician for description of the procedure. TECHNICAL DOCUMENTATION: JOB ID: [id number] [employer]- All Rights Reserved Reading location - IP/workstation name: [email or web address]
--- NOTE | 2018-09-27 10:29 | RADIOLOGY REPORT (SQ) ---
EXAM DESCRIPTION: FINGER LEFT; NO CHG FLUORO COMPLETED DATE/TIME: 09/27/2018 9:50 am; 09/27/2018 9:49 am REASON FOR STUDY: LEFT THUMB THUMB REPAIR S63.642A SPRAIN OF METACARPOPHALANGEAL JOINT OF LEFT THUM B, COMPARISON: None. FLUOROSCOPY TIME: 1 minutes 4 seconds 7 digital C-arm images saved to PACS. TECHNIQUE: Intra-operative images acquired during surgical procedure to evaluate progress. NUMBER OF IMAGES: 7 digital C-arm images LIMITATIONS: None. FINDINGS: 7 films are submitted during hardware removal at the level of the left 1st metacarpophalan geal joint. Please see the operative report for further details. Stress and nonstress images were o btained at the 1st metacarpophalangeal joint IMPRESSION: Intra procedural imaging and fluoro COMMENT: Quality ID [id number]: Final reports for procedures using fluoroscopy that document radiation exp osure indices, or exposure time and number of fluorographic images (if radiation exposure indices are not available) Please consult full operative report of the attending physician for description of the procedure. TECHNICAL DOCUMENTATION: JOB ID: [id number] [employer]- All Rights Reserved Reading location - IP/workstation name: [email or web address]
[2018-09-27] MEDS ORDERED: OXYCODONE-ACETAMINOPHEN 5-325 MG TABLET ONE (11:01)
[2018-09-27 12:53] VITALS: BP 110/62
== END 2018-09-27 12:15 | disposition home or self-care (01) ==
LOC: OROUT 07:01
PROVIDERS: ATTEND Orthopaedic Surgery
DX: S63.642A Sprain of metacarpophalangeal joint of left thumb, initial encounter (principal); X58.XXXA Exposure to other specified factors, initial encounter; E78.5 Hyperlipidemia, unspecified
CPT/HCPCS: 36415; 85025; 80048; 73140; 26541; J2250; J3490 ×2; J0690; J1100; J3010; J1885; J1170; J2405; J7060; J2704; J0131; 01810